=== PATIENT | male | born 1975 | race Caucasian/White ===

== ENCOUNTER 2019-10-12 22:24 | Emergency (ER) | payer OTHER, SELFPAY ==
--- NOTE | ~2019-10-12 | XR_ITS ---
EXAMINATION: XR chest 2V EXAM DATE: 10/12/2019 23:11 INDICATION: Shortness of breath cough, mid chest pain. TECHNIQUE: Frontal and lateral projections of the chest obtained and reviewed. There is no prior dali dy for comparison. FINDINGS: Patchy left basilar, possibly right basilar airspace disease likely acute infectious proces s. The lungs are otherwise clear. There are no pleural effusions. The cardiomediastinal silhouette is within normal limits. There is no pneumothorax suspected. The bones and soft tissues are unremar kable. IMPRESSION: Patchy left basilar and possibly right basilar acute infectious process, clinical correla tion. Reviewed, dictated and finalized at location A. IMPRESSION: Patchy left basilar and possibly right basilar acute infectious pro cess, clinical correlation.
[2019-10-12 22:24] VITALS: BP 141/99; PULSE 62; RESP 25; TEMP 36.6; O2SAT 98
--- NOTE | 2019-10-12 22:34 | ED.CHESTPAIN ---
HPI - Chest Pain General Chief Complaint: Chest Pain Stated Complaint: chest tightnes Time Seen by Provider: 10/12/19 22:33 Source: patient Mode of arrival: EMS Limitations: no limitations History of Present Illness HPI narrative: Patient is a 44-year-old male who presents for evaluation of chest pain. Patient reports a 6-hour history of chest pain this evening. Patient states that he smokes marijuana all day today as well as increased amount of cigarette use, and has been experiencing chest pain over the 6 hours. Patient reports chest pain over the center of his chest which is described as a burning in nature. No back pain shoulder pain or arm pain. No jaw pain. No diaphoresis, no nausea, vomiting or shortness of breath. Patient reports his pain is moderate. Patient denies any cocaine use, alcohol use. No back or flank pain. Related Data Allergies Allergy/AdvReac Type Severity Reaction Status Date / Time No Known Allergies Allergy Unverified 12/08/16 10:35 Review of Systems Review of Systems: Narrative: CONSTITUTIONAL: Denies fever, chills, or sweats. ENT: Denies rhinorrhea, congestion, sore throat, or otalgia. CARDIOVASCULAR: Reports chest pain, denies palpitations, or edema. RESPIRATORY: Denies cough or dyspnea. GASTROINTESTINAL: Denies abdominal pain, nausea, vomiting, or diarrhea. GENITOURINARY: Denies dysuria or hematuria. SKIN: Denies rash or itching. MUSCULOSKELETAL: Denies back pain, joint pain, or myalgia. NEUROLOGIC: Denies headache, numbness, or weakness. [facility] Past Medical History Medical History (Updated 10/12/19 @ 23:51 by Brook Wells MD) No pertinent past medical history Surgical History Surgical History (Updated 10/12/19 @ 22:53 by Brook Wells MD) No pertinent past surgical history Family History Family History Mother Patient's mother is in good health Father Family history of lung cancer Social History Social History (Updated 10/12/19 @ 22:54 by Brook Wells MD) Smoking status: Current every day smoker Tobacco type: cigarettes Smoking end date: 06/29/12 Alcohol intake: current Substance use type: marijuana Living arrangements: with family Gender identity (if verbalized by the patient): Male Exam Narrative: Exam Narrative: GENERAL: Awake, alert, conversant HEAD: Normocephalic, atraumatic. EYES: PERRLA and EOMI. ENT: Nares clear, no rhinorrhea or epistaxis. Mucous membranes moist. NECK: Supple. CHEST: No respiratory distress, breathing even and non labored, no chest wall tenderness HEART: Regular rate, sinus rhythm ABDOMEN:Non distended, non tender EXTREMITIES: Normal range of motion. No edema. SKIN: Warm, dry, no rash. NEURO:No focal deficits. Alert and oriented x3 Course Vital Signs Vital signs: Vital Signs Temperature 36.6 C 10/12/19 22:24 Pulse Rate 62 10/12/19 22:24 Respiratory Rate 25 H 10/12/19 22:24 Blood Pressure 141/99 H 10/12/19 22:24 Pulse Oximetry 98 10/12/19 22:24 Temperature 36.6 C 10/12/19 22:24 Pulse Rate 60 10/13/19 00:36 Respiratory Rate 18 10/13/19 00:36 Blood Pressure 133/89 10/13/19 00:36 Pulse Oximetry 100 10/13/19 00:36 MDM - Chest Pain MDM Narrative Medical decision making narrative: Patient presented for evaluation of chest pain. At the time of initial assessment, ABCs are intact and vital signs are stable. She has abnormal findings in V 2, anteriorly, no previous EKGs for comparison. This could just be benign early repolarization, subsequent EKG shows no acute ischemic changes. Patient's initial troponin is normal. Chest x-ray is concerning for pneumonia. I do not know if this is due to inhalation injury from the marijuana and cigarette smoke that has been constant throughout the day for the patient, but we will treat this with antibiotics. Second troponin is normal. Heart score is low, patient can follow-up outpatient
--- NOTE | 2019-10-12 22:35 | ECG_ITS ---
Measurements Intervals Anthon Rate: 61 P: 63 PA: 166 QRS: 8 QRSD: 118 T: 22 QT: 404 QTc: 408 Interpretive Statements SINUS RHYTHM INCOMPLETE RIGHT BUNDLE BRANCH BLOCK CONSIDER BRUGADA PATTERN BORDERLINE T WAVE ABNORMALITY- ANTEROLAT/INF LEADS BASELINE WANDER- V2-V6 ABNORMAL ECG Electronically Signed On 10-13-2019 7:46:10 CDT by Roman Saini D.O.
[2019-10-12] MEDS: ASPIRIN 81 MG CHEWABLE TABLET 324 MG PO (22:47)
[2019-10-12] MEDS: MORPHINE SULFATE 4 MG/ML INJ IV PUSH (22:48)
[2019-10-12] MEDS: ONDANSETRON INJ 4 MG/2 ML VIAL IV PUSH (22:48)
[2019-10-12 23:09] LABS: Basophils Percent Auto 0.4 % (0.2-1.2); Eosinophils Absolute Auto 0.2 K/mm3 (0-0.3); Eosinophils Percent Auto 2.7 % (0-4.4); Hematocrit 45.9 % (42.0-52.0); Hemoglobin 15.2 g/dL (14.0-18.0); Immature Granulocyte Absolute 0.02 K/mm3 (0.00-0.031); Immature Granulocyte Percent A 0.3 % (0-0.5); Lymphocytes Absolute Auto 2.68 K/mm3 (0.9-3.2); Lymphocytes Percent Auto 39.9 % (18.3-44.2); Mean Corpuscular HGB Conc 33.1 g/dl (32-36); Mean Corpuscular Hemoglobin 31.9 pg (26-34); Mean Corpuscular Volume 96.4 fl (80-100); Mean Platelet Volume 9.3 fl (7.4-10.4); Monocytes Absolute Auto 0.6 K/mm3 (0.1-0.6); Monocytes Percent Auto 8.3 % (2.6-8.5); Neutrophils Absolute Auto 3.2 K/mm3 (1.3-6.7); Neutrophils Percent Auto 48.4 % (45.5-73.1); Platelet Count Result 238 k/mm3 (150-375); Red Blood Count 4.76 M/mm3 (4.6-6.20); Red Cell Distribution Width 12.2 % (11.5-14.5); White Blood Count 6.7 K/mm3 (4.5-10.0)
[2019-10-12 23:11] LABS: Add Urine Microscopic? NO; Appearance Urine Clear (Clear); Bilirubin Urine Negative (Negative); Blood Urine Negative (Negative); Color Urine Straw (Yellow); Glucose Urine UA Negative (Negative); Ketones Urine Negative (Negative); Leukocyte Esterase Ur Negative LEU/UL (Negative); Nitrate Urine Negative (Negative); Protein Urine Negative (Negative); Specific Grav Ur 1.011 (1.001-1.035); Urobilinogen Urine Negative mg/dL (<2.0)
[2019-10-12 23:12] VITALS: BP 125/83; PULSE 56; RESP 19; O2SAT 100
[2019-10-12 23:12] LABS: Alanine Aminotransferase 25 U/L (4-50); Albumin Level 4.5 g/dL (3.5-5.1); Alkaline Phosphatase 74 U/L (38-126); Aspartate Amino Transferase 33 U/L (17-59); Bilirubin,Total 0.2 mg/dL (0.2-1.3); Blood Urea Nitrogen 11 mg/dL (9-20); Calcium 9.3 mg/dL (8.4-10.2); Carbon Dioxide 26 mmol/L (22-30); Chloride 105 mmol/L (98-107); Estimated CRCL calculation 94 ml/min; Estimated Glomerular Filt Rate > 60; Glucose 112 mg/dL (75-110); Lipase 291 U/L (23-300); Potassium 3.7 mmol/L (3.4-5.0); Sodium 138 mmol/L (137-145)
[2019-10-12 23:17] LABS: Prothrombin Time 12.4 Seconds (11.1-14.7)
[2019-10-12 23:18] LABS: Partial Thromboplastin Time 31.5 SECONDS (22.3-36.8)
[2019-10-12 23:22] LABS: Troponin I < 0.012 ng/mL (0.000-0.034)
[2019-10-12 23:32] LABS: Amphetamine Screen Urine Negative (Negative); Barbiturate Screen Urine Negative (Negative); Benzodiazepines Screen Urine Negative (Negative); Cannabinoid Screen Urine Positive (Negative); Cocaine Screen Urine Negative (Negative); Methadone Screen Urine Negative (Negative); Opiate Screen Urine Negative (Negative); Phencyclidine Screen Urine Negative (Negative)
[2019-10-13 00:36] VITALS: BP 133/89; PULSE 60; RESP 18; O2SAT 100
[2019-10-13 01:00] LABS: Troponin I < 0.012 ng/mL (0.000-0.034)
[2019-10-13 01:11] VITALS: BP 141/86; PULSE 66; RESP 18; TEMP 36.8; O2SAT 100
== END 2019-10-13 01:13 | disposition home or self-care (01) ==
PROVIDERS: Emergency Provider Emergency Medicine
DX: R07.89 Other chest pain (principal); J18.9 Pneumonia, unspecified organism; F17.210 Nicotine dependence, cigarettes, uncomplicated; I45.10 Unspecified right bundle-branch block; R94.31 Abnormal electrocardiogram [ECG] [EKG]
CPT/HCPCS: 36415; 71046; 80053; 80307; 81003; 83690; 84484; 85025; 85610; 85730; 93005; 96374; 96375; 99284; A9270; J2270; J2405

== ENCOUNTER 2020-12-22 21:43 | Emergency (ER) | payer SELFPAY ==
--- NOTE | ~2020-12-22 | XR_ITS ---
EXAMINATION: XR chest 2V 12/23/2020 00:28 INDICATION: Chest wall pain PROCEDURE: 2 view chest COMPARISON: 10/12/2019 FINDINGS: The lungs are clear. The cardiomediastinal silhouette is within normal limits. There are no pleural effusions. There is no pneumothorax suspected. IMPRESSION: 1: NO ACUTE CARDIOPULMONARY DISEASE. Reviewed, dictated and finalized at location A.
[2020-12-22 21:48] VITALS: BP 140/81; PULSE 105; RESP 16; TEMP 37; O2SAT 98
--- NOTE | 2020-12-22 23:46 | ED.BACK ---
HPI - Back Pain/Injury General Chief Complaint: Back Pain/Injury Stated Complaint: back and lower lung pain Time Seen by Provider: 12/22/20 23:39 History of Present Illness HPI Narrative: CHest wall pain pain for the past few days. extends across the superior portion of the chest to his upper back bilaterally. Feels like torn/strained muscle. worse with breathing and upper body movement. No trauma, SOB, fever, cough. Related Data Allergies Allergy/AdvReac Type Severity Reaction Status Date / Time No Known Allergies Allergy Verified 12/23/20 00:06 Review of Systems Review of Systems: All systems reviewed & are unremarkable except as noted in HPI and below Constitutional: Constitutional: Denies fever(s) ENT: Denies dizziness Cardiovascular: Cardiovascular: Denies rapid heart rate Respiratory: Respiratory: Denies cough, Denies dyspnea and Reports wheezing Gastrointestinal: Gastrointestinal: Reports no additional gastrointestinal complaints [facility] Past Medical History Medical History No pertinent past medical history Surgical History Surgical History No pertinent past surgical history Family History Family History Mother Patient's mother is in good health Father Family history of lung cancer Social History Social History Smoking status: Current every day smoker Tobacco type: cigarettes Smoking end date: 06/29/12 Alcohol intake: current Substance use type: marijuana Gender identity (if verbalized by the patient): Male Exam Const: General: healthy appearing, no acute distress and alert Orientation/consciousness: patient oriented x3 HENMT: Head: normal to inspection Throat: posterior oropharynx normal Eyes: Pupils: Equal, round and reactive pupils present EOM: EOMs intact bilaterally Neck: Neck: normal visual inspection and no lymphadenopathy Chest: Chest palpation & inspection: tenderness (diffuse chest wall tenderness) Resp: Effort & Inspection: normal respiratory effort Auscultation: clear to auscultation bilaterally, no rales, no rhonchi and no wheezes Cardio: Jugular venous distension: no JVD Rate: regular rate Rhythm: regular rhythm Heart sounds: no murmurs GI: GI Palp: Yes Soft to palpation and No Tenderness to palpation present (GI) Skin: General skin exam: normal color Neuro: General: patient oriented x3, moves all extremities, no focal motor deficits and CN's II-XI intact bilaterally Speech: normal speech Gait exam (Neuro): Normal gait present Extrem: General: normal to inspection and no edema Psych: Appearance: well kempt Affect: normal affect Course Vital Signs Vital signs: Vital Signs Temperature 37.0 C 12/22/20 21:48 Pulse Rate 105 H 12/22/20 21:48 Respiratory Rate 16 12/22/20 21:48 Blood Pressure 140/81 12/22/20 21:48 Pulse Oximetry 98 12/22/20 21:48 Temperature 37.0 C 12/22/20 21:48 Pulse Rate 84 12/23/20 01:47 Respiratory Rate 16 12/23/20 01:47 Blood Pressure 134/85 12/23/20 01:47 Pulse Oximetry 97 12/23/20 01:47 MDM - Back Pain/Injury MDM Narrative Medical decision making narrative: Active and no reason to suspect PE. x-ray negative. Differential Diagnosis Differential diagnosis: Likely thoracic back pain and other (pneumonia, pleurisy, muscle strain) Medical Records Attestation: I reviewed the patient's medical records. Imaging Data Radiologist's impression: ITS Impressions Chest X-Ray 12/23/20 09:09 IMPRESSION: 1: NO ACUTE CARDIOPULMONARY DISEASE. Discharge Plan Discharge Clinical Impression: Chest wall pain Patient Disposition: Home, Self-Care Condition: Stable Instructions: Chest Wall Pain (ED) Prescriptions: New cyclobenzaprine 10 mg ta
[2020-12-23 00:01] VITALS: O2SAT 95
[2020-12-23 00:07] VITALS: BP 140/79; PULSE 79; RESP 16; O2SAT 97
--- NOTE | 2020-12-23 00:22 | PC.NURSE ---
Pt to imaging at this time.
[2020-12-23 01:47] VITALS: BP 134/85; PULSE 84; RESP 16; O2SAT 97
== END 2020-12-23 01:49 | disposition home or self-care (01) ==
PROVIDERS: Emergency Provider Emergency Medicine
DX: R07.89 Other chest pain (principal); F17.210 Nicotine dependence, cigarettes, uncomplicated
CPT/HCPCS: 71046; 99283

== ENCOUNTER 2024-02-28 07:51 | Emergency (ER) | payer OTHER, SELFPAY ==
--- NOTE | ~2024-02-28 | CT_ITS ---
Noncontrast CT scan of the lumbar spine CLINICAL HISTORY: Back pain TECHNIQUE: Axial noncontrast imaging of the lumbar spine was performed. Sagittal and coronal reformat isiah images were constructed. Dose reduction technique was used on this scan by utilizing automated ex posure control and iterative reconstruction technique. The dose-length product (DLP) was 814.53 mGy-c m. FINDINGS: There is no fracture or dislocation of the lumbar spine. Vertebral bodies maintain normal h eight and alignment. Intervertebral disc spaces are well preserved. At L1-L2, there is minimal disc bulge. There is minimal facet joint arthropathy. No central canal ld nosis or neural foraminal narrowing. At L2-L3, there is minimal disc bulge and minimal facet joint hypertrophy. No central canal stenosis or neural foraminal narrowing evident. At L3-L4, there is mild disc bulge and mild facet joint/ligament flavum hypertrophy. There is minimal central canal stenosis. There is mild bilateral neural foraminal narrowing. At L4-L5, there is probable left paracentral disc protrusion versus extrusion. There is facet arthrop athy and ligamentum flavum hypertrophy, probable moderate to possibly severe thecal sac compression. There is moderate to advanced right neural foraminal compromise, and moderate left neural foraminal c ompromise. At L5-S1, there is diffuse disc bulge with mild facet arthropathy. No central canal stenosis. There i s moderate bilateral neural foraminal narrowing. Paravertebral soft tissues are unremarkable. Impression: Advanced degenerative spondylosis at L4-L5, as detailed above, with left paracentral disc protrusion versus extrusion contributing to probable severe thecal sac compression, with advanced bilateral neur al foraminal narrowing. Consider follow-up MR to further evaluate, as indicated. Reviewed, dictated and finalized at location M. Impression: Advanced degenerative spondylosis at L4-L5, as detailed above, with left parace ntral disc protrusion versus extrusion contributing to probable severe thecal s ac compression, with advanced bilateral neural foraminal narrowing. Consider follow-up MR to further evaluate, as indicated.
[2024-02-28 08:01] VITALS: BP 125/90; PULSE 72; RESP 20; TEMP 36.4; O2SAT 100
--- NOTE | 2024-02-28 08:08 | ED.GENADULT ---
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 He denies any specific trauma. This been going for 1 month, getting worse over the last few days. He denies Patient denies bowel dysfunction, bladder dysfunction, altered sensation, focal weakness, or saddle numbness, Related Data Allergies Allergy/AdvReac Type Severity Reaction Status Date / Time No Known Allergies Allergy Verified 02/28/24 08:03 Review of Systems Review of Systems: All systems reviewed & are unremarkable except as noted in HPI and below PMFSH Past Medical History Medical History No pertinent past medical history Surgical History Surgical History No pertinent past surgical history Family History Family History Mother Patient's mother is in good health Father Family history of lung cancer Social History Social History Smoking status: Current every day smoker Tobacco type: cigarettes Smoking end date: 06/29/12 Alcohol intake: current Substance use type: marijuana Living arrangements: with family Gender identity (if verbalized by the patient): Male Exam Narrative: General appearance: Well-developed, well-nourished Skin: Normal color Head: Normocephalic, nontraumatic Eyes: Clear conjunctiva ENT: Oropharynx normal, ears normal, nose normal Neck: Supple, nontender Chest and respiratory: Airway patent, no respiratory distress, no accessory muscle use Heart: Regular rate/rhythm Abdomen: Soft, nontender, no organomegaly, quiet bowel sounds Vascular: Normal peripheral pulses, normal capillary refill. Musculoskeletal: Severe tenderness center of right buttock, no rash, no swelling or bruises Neurologic: Alert and oriented ?3, [employer] is normal as tested, positive right straight leg raising test Course Vital Signs Vital signs: Vital Signs Temperature 36.4 C 02/28/24 08:01 Pulse Rate 72 02/28/24 08:01 Respiratory Rate 20 02/28/24 08:01 Blood Pressure 125/90 02/28/24 08:01 Pulse Oximetry 100 02/28/24 08:01 Oxygen Delivery Room Air 02/28/24 08:01 Temperature 36.4 C 02/28/24 08:01 Pulse Rate 72 02/28/24 08:01 Respiratory Rate 20 02/28/24 08:01 Blood Pressure 125/90 02/28/24 08:01 Pulse Oximetry 100 02/28/24 08:01 Oxygen Delivery Room Air 02/28/24 08:01 Medical Decision Making MDM Narrative Medical decision making narrative: Differential diagnosis sacroiliitis, musculoskeletal, sciatica. CT lumbar spine showed no acute abnormalities Patient received Decadron, Dilaudid and Zofran prior to discharge on Decadron and follow up with family physician for possible physical therapy. Differential Diagnosis Differential Diagnosis: As above Vital Signs Vital Signs: Vital Signs Temperature 36.4 C 02/28/24 08:01 Pulse Rate 72 02/28/24 08:01 Respiratory Rate 20 02/28/24 08:01 Blood Pressure 125/90 02/28/24 08:01 Pulse Oximetry 100 02/28/24 08:01 Oxygen Delivery Room Air 02/28/24 08:01 Temperature 36.4 C 02/28/24 08:01 Pulse Rate 72 02/28/24 08:01 Respiratory Rate 20 02/28/24 08:01 Blood Pressure 125/90 02/28/24 08:01 Pulse Oximetry 100 02/28/24 08:01
[2024-02-28] MEDS: HYDROmorphone HCL INJ (*CRX) 1 MG/ML SYR IM (08:33)
[2024-02-28] MEDS: ONDANSETRON HCL ODT 4 MG TABLET PO (08:33)
[2024-02-28] MEDS: dexAMETHasone SOD PHOS INJ 10 MG/ML 1 ML VIAL IM (08:42)
[2024-02-28 09:29] VITALS: BP 137/90; PULSE 67; RESP 16; O2SAT 95
== END 2024-02-28 09:30 | disposition home or self-care (01) ==
PROVIDERS: Emergency Provider Emergency Medicine
DX: M54.41 Lumbago with sciatica, right side (principal); F17.210 Nicotine dependence, cigarettes, uncomplicated
CPT/HCPCS: 72131; 96372; 99284; A9270; J1100; J1170